=== PATIENT | male | born 1965 | race Caucasian/White ===

== ENCOUNTER 2018-04-14 13:14 | Emergency (ER) | payer MEDICARE ==
[~2018-04-14] VITALS: Ht 175.3 cm; Wt 82.9 kg
[2018-04-14 14:14] LABS: BASOPHILS # (AUTO) 0.01 x10^3/uL (0-0.1); BASOPHILS % (AUTO) 0 % (0-1); EOSINOPHILS # (AUTO) 0.29 x10^3/uL (0-0.4); EOSINOPHILS % (AUTO) 2 % (1-7); LYMPHOCYTES # (AUTO) 3.82 x10^3/uL (1-3.4); LYMPHOCYTES % (AUTO) 28 % (22-44); MD NO; MEAN CORPUSCULAR HEMOGLOBIN 30.8 pg (27.5-34.5); MEAN CORPUSCULAR HGB CONC 33.9 g/dL (33.2-36.2); MEAN CORPUSCULAR VOLUME 90.9 fL (81-97); MEAN PLATELET VOLUME 8.5 fL (7.4-10.4); MONOCYTES # (AUTO) 0.13 x10^3/uL (0.2-0.8); MONOCYTES % (AUTO) 1 % (2-9); NEUTROPHILS % (AUTO) 69 % (42-75); PLATELET COUNT 246 x10^3/uL (130-400); RED BLOOD COUNT 4.72 x10^6/uL (4.38-5.82)
[2018-04-14 14:18] LABS: INTERNATIONAL NORMALIZED RATIO 1.1 (0.93-1.1); PROTHROMBIN TIME 11.3 Seconds (9.6-11.5)
[2018-04-14 14:23] LABS: ALANINE AMINOTRANSFERASE 30 U/L (12-78); ALBUMIN 4.1 g/dL (3.4-5.0); ANION GAP 8 mmol/L (5-15); C-REACTIVE PROTEIN, QUANT 0.05 mg/dL (0.02-0.49); CALCIUM 8.6 mg/dL (8.5-10.1); CHLORIDE 105 mmol/L (98-107)
[2018-04-14 14:25] LABS: ALKALINE PHOSPHATASE 69 U/L (45-117); BILIRUBIN,TOTAL 0.6 mg/dL (0.2-1.0)
[2018-04-14 15:17] VITALS: BP 127/60
[2018-04-14] MEDS ORDERED: ASPI-515 PO (15:23)
[2018-04-14] MEDS ORDERED: METOPROLOL PO (15:23)
[2018-04-14] MEDS ORDERED: [UNRECOGNIZED DRUG - REMARK] (15:23)
[2018-04-14] MEDS ORDERED: LIPITOR PO (15:23)
== END 2018-04-14 16:56 | disposition home or self-care (01) ==
LOC: ED 16:45
DX: I80.02 Phlebitis and thrombophlebitis of superficial vessels of left lower extremity (principal); L98.429 Non-pressure chronic ulcer of back with unspecified severity; L97.219 Non-pressure chronic ulcer of right calf with unspecified severity; L08.9 Local infection of the skin and subcutaneous tissue, unspecified; I10 Essential (primary) hypertension; E78.5 Hyperlipidemia, unspecified; F17.210 Nicotine dependence, cigarettes, uncomplicated
CPT/HCPCS: 36415; 73590; 80053; 85025; 85610; 85651; 86140; 99285; J7512

== ENCOUNTER 2018-05-24 05:24 | Emergency (ER) | payer MEDICARE ==
[~2018-05-24] VITALS: Ht 175.3 cm; Wt 82.6 kg
[~2018-05-24 05:24] MED LIST: ASPI-515 PO; LIPITOR PO; METOPROLOL PO; [UNRECOGNIZED DRUG - REMARK]
[2018-05-24] MEDS ORDERED: DIAZEPAM 5 MG TABLET PO ONE (06:00)
[2018-05-24] MEDS ORDERED: SODIUM CHLORIDE FLUSH 10ML SYR IVF ONE (06:00)
[2018-05-24] MEDS ORDERED: ACETAMINOPHEN 500 MG TABLET PO ONE (06:00)
[2018-05-24] MEDS ORDERED: ACETAMINOPHEN 500 MG TABLET ONE (06:14)
[2018-05-24] MEDS ORDERED: DIAZEPAM 5 MG TABLET ONE (06:14)
[2018-05-24 06:15] LABS: MEAN CORPUSCULAR HEMOGLOBIN 32.3 pg (27.5-34.5); MEAN CORPUSCULAR HGB CONC 34.5 g/dL (33.2-36.2); MEAN CORPUSCULAR VOLUME 93.8 fL (81-97); MEAN PLATELET VOLUME 7.9 fL (7.4-10.4); PLATELET COUNT 246 x10^3/uL (130-400); RED BLOOD COUNT 4.46 x10^6/uL (4.38-5.82); RED CELL DISTRIBUTION WIDTH 13.3 % (9.4-14.8)
[2018-05-24 06:27] LABS: ALANINE AMINOTRANSFERASE 33 U/L (12-78); ALBUMIN 3.4 g/dL (3.4-5.0); ANION GAP 8 mmol/L (5-15); CALCIUM 8.2 mg/dL (8.5-10.1); CHLORIDE 107 mmol/L (98-107); CREATININE 0.71 mg/dL (0.7-1.3)
[2018-05-24 06:29] LABS: ALKALINE PHOSPHATASE 55 U/L (45-117); BILIRUBIN,TOTAL 0.4 mg/dL (0.2-1.0); TOTAL PROTEIN 6.9 g/dL (6.4-8.2)
[2018-05-24 06:35] LABS: MD YES
[2018-05-24 06:37] LABS: BASOS#(MANUAL) 0.23 x10^3/uL (0-0.1); BASOS% (MANUAL) 2 % (0-1); EOS#(MANUAL) 0.11 x10^3/uL (0.0-0.4); EOS% (MANUAL) 1 % (1-7); LYMPH#(MANUAL) 5.65 x10^3/uL (1-3.4); LYMPHS% (MANUAL) 50 % (22-44); MONOS#(MANUAL) 0.79 x10^3/uL (0.3-2.7); MONOS% (MANUAL) 7 % (2-9); SEG#(MANUAL) 4.52 x10^3/uL (1.8-6.8); SEGS% (MANUAL) 40 % (42-75)
[2018-05-24 06:38] LABS: <PLATELET ESTIMATE> ADEQUATE; <PLT MORPHOLOGY> NORMAL PLT MORPH; <RBC MORPHOLOGY> NORMAL
[2018-05-24] MEDS ORDERED: OMNIPAQUE 350 MG/ML, 100ML BOTTLE ONE (06:43)
[2018-05-24 07:34] VITALS: BP 115/80
== END 2018-05-24 08:06 | disposition home or self-care (01) ==
LOC: ED 07:02
DX: S42.302A Unspecified fracture of shaft of humerus, left arm, initial encounter for closed fracture (principal); K63.89 Other specified diseases of intestine; I10 Essential (primary) hypertension; E78.5 Hyperlipidemia, unspecified; F17.200 Nicotine dependence, unspecified, uncomplicated; W17.89XA Other fall from one level to another, initial encounter; Y93.89 Activity, other specified; Y92.89 Other specified places as the place of occurrence of the external cause; Y99.8 Other external cause status
CPT/HCPCS: 36415; 74177; 80053; 83690; 85025; 93005; 99285; Q9967

== ENCOUNTER 2018-08-19 10:35 | Emergency (ER) | payer MEDICARE ==
[~2018-08-19] VITALS: Ht 175.3 cm; Wt 81.5 kg
[2018-08-19] MEDS ORDERED: OMEP-110 PO (11:11)
[2018-08-19] MEDS ORDERED: OXYcodone/APAP 5/325MG TABLET ONE (11:45)
[2018-08-19] MEDS ORDERED: LIDOCAINE-MPF 1%, 2ML ONE ×2 (11:58→11:59)
[2018-08-19] MEDS ORDERED: OXYcodone/APAP 5/325MG TABLET PO ONE (12:00)
[2018-08-19 12:10] LABS: BASOPHILS # (AUTO) 0.16 x10^3/uL (0-0.1); BASOPHILS % (AUTO) 1 % (0-1); EOSINOPHILS # (AUTO) 0.11 x10^3/uL (0-0.4); EOSINOPHILS % (AUTO) 1 % (1-7); LYMPHOCYTES % (AUTO) 30 % (22-44); MD NO; MEAN CORPUSCULAR HEMOGLOBIN 32.2 pg (27.5-34.5); MEAN CORPUSCULAR HGB CONC 34.4 g/dL (33.2-36.2); MEAN CORPUSCULAR VOLUME 93.6 fL (81-97); MEAN PLATELET VOLUME 7.8 fL (7.4-10.4); MONOCYTES # (AUTO) 1.05 x10^3/uL (0.2-0.8); MONOCYTES % (AUTO) 8 % (2-9); NEUTROPHILS # (AUTO) 7.88 x10^3/uL (1.8-6.8); NEUTROPHILS % (AUTO) 60 % (42-75); PLATELET COUNT 260 x10^3/uL (130-400); RED BLOOD COUNT 4.67 x10^6/uL (4.38-5.82); RED CELL DISTRIBUTION WIDTH 12.4 % (9.4-14.8)
[2018-08-19 12:22] LABS: CHLORIDE 99 mmol/L (98-107)
[2018-08-19 12:23] LABS: ALBUMIN 3.8 g/dL (3.4-5.0); ANION GAP 8 mmol/L (5-15); CALCIUM 8.7 mg/dL (8.5-10.1)
[2018-08-19 12:24] LABS: HCT (SEDRATE) 43.7 % (39.2-51.8)
[2018-08-19 15:26] VITALS: BP 132/79
== END 2018-08-19 15:29 | disposition home or self-care (01) ==
LOC: ED 11:25
DX: M13.162 Monoarthritis, not elsewhere classified, left knee (principal); I10 Essential (primary) hypertension; E78.5 Hyperlipidemia, unspecified
CPT/HCPCS: 20610; 36415; 80048; 82040; 84560; 85025; 85651; 87070; 87205; 89051; 99285

== ENCOUNTER → 2018-09-04 | Outpatient (CLI) | payer MEDICARE ==
[~2018-09-04] MED LIST changes: +OMEP-110 PO
== END | disposition home or self-care (01) ==
LOC: WOUND 13:10
PROVIDERS: ATTEND Family Medicine
DX: L97.522 Non-pressure chronic ulcer of other part of left foot with fat layer exposed (principal); I10 Essential (primary) hypertension; M10.062 Idiopathic gout, left knee; M10.9 Gout, unspecified; E78.5 Hyperlipidemia, unspecified; F17.210 Nicotine dependence, cigarettes, uncomplicated
CPT/HCPCS: 97597; 99215

== ENCOUNTER → 2018-09-11 | Outpatient (CLI) | payer MEDICARE | END | disposition home or self-care (01) | LOC: WOUND 12:50 | PROVIDERS: ATTEND Family Medicine | DX: L97.522 Non-pressure chronic ulcer of other part of left foot with fat layer exposed (principal); L97.511 Non-pressure chronic ulcer of other part of right foot limited to breakdown of skin; I10 Essential (primary) hypertension; M10.062 Idiopathic gout, left knee; F17.210 Nicotine dependence, cigarettes, uncomplicated; E78.5 Hyperlipidemia, unspecified | CPT/HCPCS: 99215 ==

== ENCOUNTER → 2018-09-18 | Outpatient (CLI) | payer MEDICARE | END | disposition home or self-care (01) | LOC: WOUND 12:58 | PROVIDERS: ATTEND Family Medicine | DX: L97.522 Non-pressure chronic ulcer of other part of left foot with fat layer exposed (principal); I10 Essential (primary) hypertension; M10.062 Idiopathic gout, left knee; E78.5 Hyperlipidemia, unspecified; F17.210 Nicotine dependence, cigarettes, uncomplicated | CPT/HCPCS: 99215 ==

== ENCOUNTER → 2018-10-02 | Outpatient (CLI) | payer MEDICARE | END | disposition home or self-care (01) | LOC: WOUND 10:00 | PROVIDERS: ATTEND Family Medicine | DX: L97.522 Non-pressure chronic ulcer of other part of left foot with fat layer exposed (principal); L97.821 Non-pressure chronic ulcer of other part of left lower leg limited to breakdown of skin; I25.10 Atherosclerotic heart disease of native coronary artery without angina pectoris; I10 Essential (primary) hypertension; M10.062 Idiopathic gout, left knee; E78.5 Hyperlipidemia, unspecified; I25.2 Old myocardial infarction; L95.8 Other vasculitis limited to the skin; M13.162 Monoarthritis, not elsewhere classified, left knee; M10.9 Gout, unspecified; F17.210 Nicotine dependence, cigarettes, uncomplicated | CPT/HCPCS: 99215 ==

== ENCOUNTER → 2018-10-09 | Outpatient (CLI) | payer MEDICARE | END | disposition home or self-care (01) | LOC: CVU 12:31 | PROVIDERS: ATTEND Family Medicine | DX: I65.22 Occlusion and stenosis of left carotid artery (principal); I10 Essential (primary) hypertension; M79.89 Other specified soft tissue disorders; L97.522 Non-pressure chronic ulcer of other part of left foot with fat layer exposed; L95.8 Other vasculitis limited to the skin; I25.10 Atherosclerotic heart disease of native coronary artery without angina pectoris; I25.2 Old myocardial infarction; Z87.891 Personal history of nicotine dependence | CPT/HCPCS: 93922; 93925; 93970 ==

== ENCOUNTER → 2018-10-16 | Outpatient (CLI) | payer MEDICARE | END | disposition home or self-care (01) | LOC: WOUND 10:26 | PROVIDERS: ATTEND Family Medicine | DX: L97.528 Non-pressure chronic ulcer of other part of left foot with other specified severity (principal); I25.10 Atherosclerotic heart disease of native coronary artery without angina pectoris; I10 Essential (primary) hypertension; M10.062 Idiopathic gout, left knee; E78.5 Hyperlipidemia, unspecified; I25.2 Old myocardial infarction; L95.8 Other vasculitis limited to the skin; M13.162 Monoarthritis, not elsewhere classified, left knee; M10.9 Gout, unspecified; F17.210 Nicotine dependence, cigarettes, uncomplicated | CPT/HCPCS: 99214 ==

== ENCOUNTER → 2018-11-05 | Outpatient (CLI) | payer MEDICARE | END | disposition home or self-care (01) | LOC: CFH 14:26 | PROVIDERS: ATTEND Orthopaedic Surgery Orthopaedic Surgery of the Spine | DX: M76.892 Other specified enthesopathies of left lower limb, excluding foot (principal); M94.8X8 Other specified disorders of cartilage, other site; M25.862 Other specified joint disorders, left knee; M25.462 Effusion, left knee ==

== ENCOUNTER → 2019-01-26 | Outpatient (CLI) | payer MEDICARE ==
[~2019-01-26] MED LIST changes: +ALLO100T30 PO; +CEFD300C37 PO; +DOXY100T PO; +HYDR12.517 PO; +METR500T PO; +PRED10TA PO
== END | disposition home or self-care (01) ==
LOC: CFH 15:43
DX: I77.6 Arteritis, unspecified (principal)
CPT/HCPCS: 71046

== ENCOUNTER 2019-01-29 07:24 | Inpatient (IN) | payer MEDICARE ==
[~2019-01-29] VITALS: Ht 175.3 cm; Wt 80.9 kg
[~2019-01-29 07:24] MED LIST changes: -ALLO100T30 PO; -CEFD300C37 PO; -DOXY100T PO; -HYDR12.517 PO; -METR500T PO; -PRED10TA PO
[2019-01-29 08:09] LABS: MEAN CORPUSCULAR HGB CONC 33.2 g/dL (33.2-36.2); MEAN CORPUSCULAR VOLUME 90.3 fL (81-97); MEAN PLATELET VOLUME 7.7 fL (7.4-10.4); PLATELET COUNT 307 x10^3/uL (130-400); RED BLOOD COUNT 4.87 x10^6/uL (4.38-5.82)
[2019-01-29 08:19] LABS: ALANINE AMINOTRANSFERASE 32 U/L (12-78); ALBUMIN 3.8 g/dL (3.4-5.0); ANION GAP 7 mmol/L (5-15); CALCIUM 8.7 mg/dL (8.5-10.1); CHLORIDE 103 mmol/L (98-107); CREATININE 0.86 mg/dL (0.7-1.3)
[2019-01-29 08:21] LABS: ALKALINE PHOSPHATASE 53 U/L (45-117); BILIRUBIN,TOTAL 0.4 mg/dL (0.2-1.0); TOTAL PROTEIN 7.2 g/dL (6.4-8.2)
--- NOTE | 2019-01-29 09:03 | NUR ---
TO ROOM FROM LOBBY. NAD.
--- NOTE | 2019-01-29 09:06 | NUR ---
PT TO ROOM, C/O OF RECTAL BLEEDING. INSTRUCTED TO BE PLACED IN GOWN
[2019-01-29] MEDS ORDERED: SODIUM CHLORIDE 0.9% 1,000ML IVBOLUS ONE (09:30)
[2019-01-29] MEDS ORDERED: HYDROmorphone 2 MG/ML, 1ML IVPush PRN (09:30)
[2019-01-29] MEDS ORDERED: SODIUM CHLORIDE FLUSH 10ML SYR IVF ONE (09:30)
[2019-01-29] MEDS ORDERED: ONDANSETRON 2MG/ML, 2ML IVPush ONE (09:30)
[2019-01-29] MEDS ORDERED: ONDANSETRON 2MG/ML, 2ML ONE (09:59)
[2019-01-29] MEDS ORDERED: HYDROmorphone 1 MG/ML, 1ML AMP ONE (10:00)
[2019-01-29 10:04] LABS: MD YES
[2019-01-29 10:12] LABS: <RBC MORPHOLOGY> NORMAL; BAND#(MANUAL) 0.18 x10^3/uL; BANDS%(MANUAL) 1 % (0-7); BASOS#(MANUAL) 0.18 x10^3/uL (0-0.1); BASOS% (MANUAL) 1 % (0-1); LYMPHS% (MANUAL) 35 % (22-44); MONOS#(MANUAL) 0.72 x10^3/uL (0.3-2.7); MONOS% (MANUAL) 4 % (2-9); SEG#(MANUAL) 10.62 x10^3/uL (1.8-6.8); SEGS% (MANUAL) 59 % (42-75)
--- NOTE | 2019-01-29 10:12 | NUR ---
MEDICATED PER ORDERS, PT STATES PAIN IS 8/10
[2019-01-29 10:31] LABS: HCT (SEDRATE) 41.4 % (39.2-51.8)
[2019-01-29 10:39] LABS: TROPONIN I < 0.015 ng/mL (0.000-0.045)
[2019-01-29] MEDS ORDERED: OMNIPAQUE 350 MG/ML, 100ML BOTTLE ONE (10:53)
--- NOTE | 2019-01-29 11:15 | NUR ---
NO C/O OF PAIN, URINE OBTAINED, VERBALIZED NO NEEDS AT THIS TIME. CALL LIGHT IN PLACE
[2019-01-29] MEDS ORDERED: METRONIDAZOLE PMX 500MG/100ML 100 ML IV ONE (11:30)
[2019-01-29] MEDS ORDERED: CEFTRIAXONE PMX 1GM/50ML 50 ML IV ONE (11:30)
[2019-01-29] MEDS ORDERED: SODIUM CHLORIDE 0.9%, 500ML IVBOLUS ONE (11:30)
--- NOTE | 2019-01-29 11:44 | NUR ---
SPOKE WITH DR. OZUNA NO BS NEEDED PRIOR TO ADMINISTRATION OF ANTBX
[2019-01-29 11:45] LABS: CULTURE INDICATED? NO; MICROSCOPIC NOT IND
[2019-01-29] MEDS ORDERED: CEFTRIAXONE PMX 1GM/50ML 50 ML ONE (11:47)
[2019-01-29 12:03] LABS: INTERNATIONAL NORMALIZED RATIO 1.05 (0.93-1.1)
[2019-01-29 12:07] LABS: <PLATELET ESTIMATE> ADEQUATE; <PLT MORPHOLOGY> NORMAL PLT MORPH
--- NOTE | 2019-01-29 12:09 | NUR ---
REPORT TO CRUZ ROA, PLAN OF CARE DISCUSSED
[2019-01-29] MEDS ORDERED: METRONIDAZOLE PMX 500MG/100ML 100 ML ONE (12:16)
--- NOTE | 2019-01-29 12:33 | NUR ---
PT TO FLOOR, BELONGINGS WITH PATIENT
[2019-01-29 12:56] VITALS: BP 100/63
[2019-01-29 12:58] VITALS: BP 100/63
[2019-01-29] MEDS ORDERED: MORPHINE SULFATE 4 MG/ML, 1ML IVPush PRN (13:30)
[2019-01-29] MEDS ORDERED: PROMETHAZINE 25 MG/ML, 1ML IM PRN (14:30)
[2019-01-29] MEDS ORDERED: morphine SULFATE 10 MG/ML, 1ML IVPush PRN (14:30)
[2019-01-29] MEDS ORDERED: ACETAMINOPHEN 325 MG TABLET PO PRN (14:30)
[2019-01-29] MEDS ORDERED: hydrALAzine 20 MG/ML, 1ML IVPush PRN (14:30)
[2019-01-29] MEDS ORDERED: ONDANSETRON 2MG/ML, 2ML IVPush PRN (14:30)
[2019-01-29] MEDS ORDERED: ONDANSETRON ODT 4 MG PO PRN (14:30)
[2019-01-29 15:22] LABS: FREE T4 (FREE THYROXINE) 1.45 ng/dL (0.76-1.46); THYROID STIMULATING HORMONE 0.566 mIU/L (0.358-3.740)
[2019-01-29] MEDS: D5%-0.9% NACL 1,000 ML IV SCH ×2 (15:22→22:30)
[2019-01-29 15:29] LABS: HEMOGLOBIN A1C 5.5 % (4.2-6.3)
[2019-01-29] MEDS: CEFTRIAXONE PMX 2GM/50ML 50 ML IV SCH (15:34)
[2019-01-29] MEDS: METRONIDAZOLE PMX 500MG/100ML 100 ML IV SCH ×2 (16:12→23:00)
[2019-01-29] MEDS: NICOTINE 7 MG/24 HR PATCH.TD24 TD SCH (16:20)
[2019-01-29] MEDS: methylPREDNISolone SOD SUCC 40 MG/ML IV SCH (16:27)
[2019-01-29] MEDS ORDERED: HYDR12.517 PO (16:42)
[2019-01-29] MEDS ORDERED: ALLO100T30 PO (16:42)
[2019-01-29] MEDS ORDERED: PRED10TA PO (16:42)
[2019-01-29] MEDS ORDERED: DOXY100T PO (16:42)
[2019-01-29 20:40] VITALS: BP 106/68
[2019-01-30 01:43] VITALS: BP 111/72
[2019-01-30] MEDS: methylPREDNISolone SOD SUCC 40 MG/ML IV SCH ×2 (03:00→15:28)
[2019-01-30 05:21] LABS: BASOPHILS # (AUTO) 0.04 x10^3/uL (0-0.1); BASOPHILS % (AUTO) 0 % (0-1); EOSINOPHILS # (AUTO) 0.21 x10^3/uL (0-0.4); EOSINOPHILS % (AUTO) 2 % (1-7); LYMPHOCYTES # (AUTO) 3.32 x10^3/uL (1-3.4); LYMPHOCYTES % (AUTO) 26 % (22-44); MD NO; MEAN CORPUSCULAR HGB CONC 33.9 g/dL (33.2-36.2); MEAN CORPUSCULAR VOLUME 91.3 fL (81-97); MONOCYTES # (AUTO) 1.03 x10^3/uL (0.2-0.8); MONOCYTES % (AUTO) 8 % (2-9); NEUTROPHILS # (AUTO) 8.08 x10^3/uL (1.8-6.8); NEUTROPHILS % (AUTO) 64 % (42-75); PLATELET COUNT 268 x10^3/uL (130-400); RED BLOOD COUNT 4.34 x10^6/uL (4.38-5.82); RED CELL DISTRIBUTION WIDTH 13.5 % (9.4-14.8)
[2019-01-30 05:31] LABS: ALBUMIN 3.2 g/dL (3.4-5.0); CHLORIDE 111 mmol/L (98-107)
[2019-01-30 05:36] LABS: ALANINE AMINOTRANSFERASE 24 U/L (12-78); ALKALINE PHOSPHATASE 46 U/L (45-117); ANION GAP 7 mmol/L (5-15); BILIRUBIN,TOTAL 0.4 mg/dL (0.2-1.0); CHOL/HDL RATIO 2.8; CHOLESTEROL, TOTAL 130 mg/dL (140-239); HDL CHOL % 36 % (26-37); HDL CHOLESTEROL (DIRECT) 47 mg/dL (40-60); LDL CHOLESTEROL,CALCULATED 69 mg/dL (54-169); LDL/HDL RATIO 1.5 (0.5-3.0); TOTAL PROTEIN 5.8 g/dL (6.4-8.2); TRIGLYCERIDES 71 mg/dL (50-200); VLDL CHOLESTEROL 14 mg/dL (0-25)
[2019-01-30 07:56] VITALS: BP 111/64
[2019-01-30] MEDS: ASPIRIN 81 MG TABLET EC PO SCH (08:45)
[2019-01-30] MEDS: METRONIDAZOLE PMX 500MG/100ML 100 ML IV SCH ×3 (08:45→22:50)
[2019-01-30] MEDS: D5%-0.9% NACL 1,000 ML IV SCH ×3 (08:45→22:50)
[2019-01-30] MEDS: METOPROLOL SUCCINATE 25 MG TAB.ER.24H PO SCH (08:45)
[2019-01-30] MEDS: OXYcodone/APAP 5/325MG TABLET PO PRN ×2 (13:45→21:05)
[2019-01-30 14:36] VITALS: BP 138/81
[2019-01-30] MEDS: NICOTINE 7 MG/24 HR PATCH.TD24 TD SCH (15:28)
[2019-01-30] MEDS: CEFTRIAXONE PMX 2GM/50ML 50 ML IV SCH (17:24)
[2019-01-30 19:57] VITALS: BP 110/63
[2019-01-30 20:16] LABS: MICROSCOPIC NOT IND
[2019-01-31 01:02] VITALS: BP 95/50
[2019-01-31] MEDS: methylPREDNISolone SOD SUCC 40 MG/ML IV SCH (02:50)
[2019-01-31] MEDS: OXYcodone/APAP 5/325MG TABLET PO PRN (04:46)
[2019-01-31 04:55] LABS: BASOPHILS # (AUTO) 0.04 x10^3/uL (0-0.1); BASOPHILS % (AUTO) 0 % (0-1); EOSINOPHILS # (AUTO) 0.01 x10^3/uL (0-0.4); EOSINOPHILS % (AUTO) 0 % (1-7); LYMPHOCYTES % (AUTO) 26 % (22-44); MD NO; MEAN CORPUSCULAR HEMOGLOBIN 30.5 pg (27.5-34.5); MEAN CORPUSCULAR HGB CONC 33.5 g/dL (33.2-36.2); MEAN CORPUSCULAR VOLUME 91.2 fL (81-97); MEAN PLATELET VOLUME 8.2 fL (7.4-10.4); MONOCYTES % (AUTO) 7 % (2-9); NEUTROPHILS % (AUTO) 67 % (42-75); PLATELET COUNT 265 x10^3/uL (130-400); RED CELL DISTRIBUTION WIDTH 13.6 % (9.4-14.8)
[2019-01-31 05:04] LABS: ALBUMIN 3.2 g/dL (3.4-5.0); ANION GAP 5 mmol/L (5-15); CALCIUM 8.2 mg/dL (8.5-10.1); CHLORIDE 112 mmol/L (98-107)
[2019-01-31 05:05] LABS: CREATININE 0.65 mg/dL (0.7-1.3)
[2019-01-31] MEDS: METRONIDAZOLE PMX 500MG/100ML 100 ML IV SCH (06:40)
[2019-01-31] MEDS: D5%-0.9% NACL 1,000 ML IV SCH (06:41)
[2019-01-31 07:50] VITALS: BP 129/80
[2019-01-31] MEDS: METOPROLOL SUCCINATE 25 MG TAB.ER.24H PO SCH (08:51)
[2019-01-31] MEDS: ASPIRIN 81 MG TABLET EC PO SCH (08:52)
[2019-01-31] MEDS ORDERED: CEFD300C37 PO (13:38)
[2019-01-31] MEDS ORDERED: METR500T PO (13:38)
[2019-01-31 14:31] VITALS: BP 122/77
[2019-02-02] MEDS ORDERED: ATORVASTATIN 20 MG TABLET PO SCH (21:00)
== END 2019-01-31 15:20 | disposition home or self-care (01) | DRG 378 ==
LOC: ED 10:18 → EDIP 11:27 → 3NW 11:57
PROVIDERS: ADMIT Internal Medicine; ATTEND Internal Medicine
DX: K92.2 Gastrointestinal hemorrhage, unspecified (principal); K55.9 Vascular disorder of intestine, unspecified; K86.1 Other chronic pancreatitis; I25.10 Atherosclerotic heart disease of native coronary artery without angina pectoris; I10 Essential (primary) hypertension; I77.6 Arteritis, unspecified; F17.200 Nicotine dependence, unspecified, uncomplicated; E78.5 Hyperlipidemia, unspecified; Z86.72 Personal history of thrombophlebitis; Z95.5 Presence of coronary angioplasty implant and graft; Z87.11 Personal history of peptic ulcer disease; Z90.89 Acquired absence of other organs
CPT/HCPCS: 36415; 74174; 80048; 80053; 80061; 81003; 82040; 83036; 83605; 83690; 83735; 84100; 84439; 84443; 84484; 85025; 85610; 85651; 87040; 93005; 96361; 96365; 96368; 96375; G0378; J0696; J1170; J2405; J7042; Q9967; J2920; J7030; J7040

== ENCOUNTER 2020-04-22 01:06 | Emergency (ER) | payer MEDICARE, MEDICAID ==
[~2020-04-22] VITALS: Ht 177.8 cm; Wt 82.0 kg
[~2020-04-22 01:06] MED LIST changes: +ALLO100T30 PO; +AZAT50TA9 PO; +CEFD300C37 PO; +DOXY100T PO; +GABA600T7 PO; +HYDR12.517 PO; +METR500T PO; +NICO-486 TD; +OMEP40CA42 PO; +PRED10TA PO; +VANC1VIA3 PO
--- NOTE | 2020-04-22 02:08 | NUR ---
PT TO ED PER EMS FOR EVALUATION OF CHEST PAIN AND SHORTNESS OF BREATH. PT REPORTS CHEST PAIN AND SHORTNESS OF BREATH HAVE BEEN GOING ON FOR THE PAST SEVERAL DAYS. DENIES FEVER OR COUGH. DENIES ANY BILATERAL LOWER EXTREMITY EDEMA. PT PLACED ON MANAGER AREA AND CONTINUOUS PULSE OX.
[2020-04-22] MEDS ORDERED: ASPI-496 PO (02:17)
[2020-04-22] MEDS ORDERED: ATOR-2 PO (02:18)
[2020-04-22] MEDS ORDERED: CYCL50CA3 PO (02:18)
[2020-04-22] MEDS ORDERED: ISOS120T4 PO (02:19)
[2020-04-22] MEDS ORDERED: LISI5TAB7 PO (02:20)
[2020-04-22] MEDS ORDERED: METO25TA35 PO (02:20)
[2020-04-22] MEDS ORDERED: OMEP-110 PO (02:21)
[2020-04-22] MEDS ORDERED: NITR0.4T28 SL (02:21)
[2020-04-22] MEDS ORDERED: PRED10TA PO (02:22)
[2020-04-22] MEDS ORDERED: LISI2.5T PO (02:22)
[2020-04-22] MEDS ORDERED: MULT-717 PO (02:23)
[2020-04-22] MEDS ORDERED: probiotic (02:23)
[2020-04-22] MEDS ORDERED: LISI-170 PO (02:23)
[2020-04-22 02:25] LABS: MEAN CORPUSCULAR HEMOGLOBIN 30.8 pg (27.5-34.5); MEAN CORPUSCULAR VOLUME 93.1 fL (81-97); MEAN PLATELET VOLUME 7.4 fL (7.4-10.4); PLATELET COUNT 246 x10^3/uL (130-400); RED BLOOD COUNT 4.21 x10^6/uL (4.38-5.82); RED CELL DISTRIBUTION WIDTH 21.2 % (9.4-14.8)
[2020-04-22 02:27] LABS: ALANINE AMINOTRANSFERASE 31 U/L (12-78); ALBUMIN 3.9 g/dL (3.4-5.0); ANION GAP 9 mmol/L (5-15); CALCIUM 8.2 mg/dL (8.5-10.1); CHLORIDE 108 mmol/L (98-107); CREATININE 0.63 mg/dL (0.7-1.3)
[2020-04-22 02:31] LABS: ALKALINE PHOSPHATASE 63 U/L (45-117); BILIRUBIN,TOTAL 0.4 mg/dL (0.2-1.0); TOTAL PROTEIN 7.6 g/dL (6.4-8.2); TROPONIN I < 0.015 ng/mL (0.000-0.045)
--- NOTE | 2020-04-22 02:36 | NUR ---
BREAK RN: PATIENT RESTING ON GURNEY, RESPIRATIONS EVEN AND UNLABORED. MONIKA MARINO
[2020-04-22 02:54] LABS: ANISOCYTOSIS 1+; BASOPHILS # (AUTO) 0.13 x10^3/uL (0-0.1); BASOPHILS % (AUTO) 2 % (0-1); EOSINOPHILS # (AUTO) 0.32 x10^3/uL (0-0.4); EOSINOPHILS % (AUTO) 4 % (1-7); LYMPHOCYTES # (AUTO) 3.27 x10^3/uL (1-3.4); LYMPHOCYTES % (AUTO) 37 % (22-44); MD MORPH REVIEW ONLY; MONOCYTES # (AUTO) 0.69 x10^3/uL (0.2-0.8); MONOCYTES % (AUTO) 8 % (2-9); NEUTROPHILS # (AUTO) 4.45 x10^3/uL (1.8-6.8); NEUTROPHILS % (AUTO) 50 % (42-75)
[2020-04-22 02:55] LABS: <PLATELET ESTIMATE> ADEQUATE; ACANTHOCYTES 1+; ECHINOCYTES 1+; OVALOCYTES 1+; SCHISTOCYTES 1+; TARGET CELLS 1+
[2020-04-22 02:56] LABS: <PLT MORPHOLOGY> NORMAL PLT MORPH
[2020-04-22 03:30] VITALS: BP 119/78
--- NOTE | 2020-04-22 04:00 | NUR ---
PT LEFT ER WITHOUT DC PAPERWORK DESPITE BEING TOLD TO WAIT IN ROOM FOR RN. LAST INTERACTION PT WAS [facility] no SOB, P/W/D, VSS, MAEx4. NO BELONGINGS LEFT IN ROOM.
== END 2020-04-22 04:01 | disposition home or self-care (01) ==
LOC: ED 02:28
DX: R07.89 Other chest pain (principal); R05 Cough; I10 Essential (primary) hypertension; I25.2 Old myocardial infarction; E78.5 Hyperlipidemia, unspecified; F17.200 Nicotine dependence, unspecified, uncomplicated; M19.90 Unspecified osteoarthritis, unspecified site
CPT/HCPCS: 36415; 71045; 80053; 83880; 84484; 85025; 93005; 99285

== ENCOUNTER 2020-12-27 16:37 | Emergency (ER) | payer MEDICARE, MEDICAID ==
[~2020-12-27] VITALS: Ht 172.7 cm; Wt 67.9 kg
[~2020-12-27 16:37] MED LIST changes: +ALBU90AE2 INH; +ASPI-496 PO; -ASPI-515 PO; +ASPI-963 PO; +ATOR-2 PO; +BUDE10.22 INH; +CYCL50CA3 PO; +DULO30CA44 PO; +ISOS120T4 PO; +L.AC1CAP6 PO; +LISI-170 PO; +LISI2.5T PO; +LISI5TAB7 PO; +METO25TA35 PO; +MONT10TA17 PO; +MULT-717 PO; +MYCO500T PO; +NITR0.4T28 SL; +ONDA4TAB13 PO; +probiotic
--- NOTE | 2020-12-27 17:12 | NUR ---
PATIENT WALKED BACK FROM TRIAGE WITH CHIEF C/O LEFT LEG PAIN. PER PATIENT HE WAS DIAGNOSED WITH A DVT IN LEFT LEG ABOUT 2 WEEKS AGO BY [employer]. PATIENT ALSO REPORTS ABD PAIN OFF AND ON X1 MONTH. PATIENT DENIES SOB. PATIENT IS TACHYCARDIC ON THE MONITOR, OTHER VITALS STABLE. SIDE RAILS UP X2, CALL LIGHT WITHIN REACH.
--- NOTE | 2020-12-27 17:39 | NUR ---
ERMD AT BEDSIDE FOR EVALUATION.
[2020-12-27] MEDS ORDERED: ONDANSETRON 2MG/ML, 2ML IVPush ONE (18:00)
--- NOTE | 2020-12-27 18:03 | NUR ---
STUDIO OPERATIONS ENGINEER IN CHARGE AT BEDSIDE TO START IV AND GET BLOOD.
[2020-12-27] MEDS ORDERED: ONDANSETRON 2MG/ML, 2ML ONE (18:05)
[2020-12-27] MEDS ORDERED: MORPHINE SULFATE 4 MG/ML, 1ML ONE ×2 (18:05→19:29)
[2020-12-27] MEDS: MORPHINE SULFATE 4 MG/ML, 1ML IVPush PRN ×2 (18:17→19:38)
[2020-12-27 18:26] LABS: MEAN CORPUSCULAR HEMOGLOBIN 35.4 pg (27.5-34.5); MEAN CORPUSCULAR HGB CONC 34.6 g/dL (33.2-36.2); MEAN PLATELET VOLUME 9.2 fL (7.4-10.4); PLATELET COUNT 171 x10^3/uL (130-400); RED BLOOD COUNT 4.56 x10^6/uL (4.38-5.82); RED CELL DISTRIBUTION WIDTH 14.4 % (9.4-14.8)
[2020-12-27 18:39] LABS: ALBUMIN 3.3 g/dL (3.4-5.0); ANION GAP 13 mmol/L (5-15); CALCIUM 8.2 mg/dL (8.5-10.1); CHLORIDE 98 mmol/L (98-107)
[2020-12-27 18:45] LABS: ALANINE AMINOTRANSFERASE 59 U/L (12-78); ALKALINE PHOSPHATASE 154 U/L (45-117); CREATININE 0.57 mg/dL (0.7-1.3); TOTAL PROTEIN 7.6 g/dL (6.4-8.2); TROPONIN I < 0.015 ng/mL (0.000-0.045)
[2020-12-27 18:47] LABS: MD YES
[2020-12-27 18:51] LABS: BAND#(MANUAL) 0.13 x10^3/uL; BANDS%(MANUAL) 1 % (0-7); BASOS#(MANUAL) 0.13 x10^3/uL (0-0.1); BASOS% (MANUAL) 1 % (0-1); EOS#(MANUAL) 0.13 x10^3/uL (0.0-0.4); EOS% (MANUAL) 1 % (1-7); LYMPH#(MANUAL) 2.55 x10^3/uL (1-3.4); LYMPHS% (MANUAL) 19 % (22-44); MONOS#(MANUAL) 1.61 x10^3/uL (0.3-2.7); MONOS% (MANUAL) 12 % (2-9); SEG#(MANUAL) 8.84 x10^3/uL (1.8-6.8); SEGS% (MANUAL) 66 % (42-75)
[2020-12-27 18:52] LABS: <RBC MORPHOLOGY> NORMAL
[2020-12-27 18:53] LABS: <PLATELET ESTIMATE> ADEQUATE; LARGE PLATELETS 1+
--- NOTE | 2020-12-27 18:58 | NUR ---
REPORT GIVEN TO CRISPIN VILLALOBOS FOR TRANSFER OF PATIENT CARE.
--- NOTE | 2020-12-27 19:00 | NUR ---
Report from Roni ROA With assessment vss on monitor To CT scan Denies cp/sob. Reports back pain at 06/12
[2020-12-27] MEDS ORDERED: OMNIPAQUE 350 MG/ML, 100ML BOTTLE ONE (19:26)
[2020-12-27] MEDS ORDERED: PRED10TA14 PO (19:47)
[2020-12-27] MEDS ORDERED: METH2.5T PO (19:47)
--- NOTE | 2020-12-27 19:57 | NUR ---
PAIN IMPROVED TO 2/10 MED [facility] COMPLETED- OF NOTE CEELCEPT DISCONTINUED AND PATIENT STARTED ON METHOTREXATE AND PREDNISONE. REPORT TO JOYCE ROA
[2020-12-27 20:07] VITALS: BP 123/88
--- NOTE | 2020-12-27 20:11 | NUR ---
ERP AT FOR RECHECK.
--- NOTE | 2020-12-27 20:50 | NUR ---
D/C INSTRUCTIONS, MEDS & F/U APPT RV'WD WITH PT, HE VERBALIZES UNDERSTANDING RX GIVEN X1. EMPHASIZED IMPORTANCE OF F/U WITH PCP D/T NEW RX OF XARELTO. INSTRUCTED PT TO RETURN TO ED FOR WORSENING SYMPTOMS OR ANY OTHER CONCERNING SYMPTOMS. PT AMBULATED OUT OF ED WITH CANE WITHOUT DIFFICULTY.
== END 2020-12-27 21:01 | disposition home or self-care (01) ==
LOC: ED 20:46
DX: I82.432 Acute embolism and thrombosis of left popliteal vein (principal); I82.442 Acute embolism and thrombosis of left tibial vein; R07.89 Other chest pain; R00.0 Tachycardia, unspecified; I10 Essential (primary) hypertension; E78.5 Hyperlipidemia, unspecified; I25.2 Old myocardial infarction; Z98.61 Coronary angioplasty status; F17.210 Nicotine dependence, cigarettes, uncomplicated
CPT/HCPCS: 36415; 71045; 71275; 80053; 83690; 83880; 84484; 85025; 93005; 93971; 96374; 96375; 96376; 99285; 99406; J2270; J2405; Q9967

== ENCOUNTER 2021-01-29 13:44 | Inpatient (IN) | payer MEDICARE, MEDICAID ==
[~2021-01-29] VITALS: Ht 175.3 cm; Wt 69.1 kg
[~2021-01-29 13:44] MED LIST changes: +METH2.5T PO; +PRED10TA14 PO
--- NOTE | 2021-01-29 14:03 | NUR ---
PT CAME IN CO REDNESS SWELLING AND PAIN TO LOWER LEGS. THE LEFT LEG IS SIGNIFICANTLY MORE SWELLING THAN THE RIGHT. LEFT ANKLE HAS REDNESS AND IS TENDER WELL. PT HAS WHAT APPEARS TO BE PETECHIAE ALL OVER HIS BODY. PT REPORTS TAKING XARELTO FOR DVT HX. PT ALSO DX WITH VASCULITIS IN DEC. PT RESTING IN [facility]. BEDSIDE. CONNECTED TO ALL MONITORING EQUIPNMENT
[2021-01-29 14:32] LABS: BASOPHILS % (AUTO) 1 % (0-1); EOSINOPHILS % (AUTO) 1 % (1-7); LYMPHOCYTES % (AUTO) 14 % (22-44); MEAN CORPUSCULAR HEMOGLOBIN 34.5 pg (27.5-34.5); MEAN CORPUSCULAR HGB CONC 33.7 g/dL (33.2-36.2); MEAN PLATELET VOLUME 8.3 fL (7.4-10.4); MONOCYTES % (AUTO) 10 % (2-9); NEUTROPHILS % (AUTO) 74 % (42-75); PLATELET COUNT 369 x10^3/uL (130-400); RED BLOOD COUNT 3.73 x10^6/uL (4.38-5.82); RED CELL DISTRIBUTION WIDTH 13.9 % (9.4-14.8)
[2021-01-29 14:47] LABS: INTERNATIONAL NORMALIZED RATIO 1.56 (0.93-1.1); PROTHROMBIN TIME 16.5 Seconds (9.6-11.5)
--- NOTE | 2021-01-29 14:48 | NUR ---
PT RESTING IN [facility]. WARM BLANKETS PROVIDED
[2021-01-29 14:58] LABS: ALANINE AMINOTRANSFERASE 36 U/L (12-78); ALBUMIN 2.8 g/dL (3.4-5.0); ANION GAP 6 mmol/L (5-15); CALCIUM 8.3 mg/dL (8.5-10.1); CHLORIDE 105 mmol/L (98-107)
[2021-01-29 15:00] LABS: ALKALINE PHOSPHATASE 75 U/L (45-117); BILIRUBIN,TOTAL 1.1 mg/dL (0.2-1.0); TOTAL PROTEIN 6.3 g/dL (6.4-8.2)
[2021-01-29 15:07] LABS: MD SCAN
[2021-01-29 15:33] LABS: HCT (SEDRATE) 40.3 % (39.2-51.8)
[2021-01-29] MEDS ORDERED: CEFTRIAXONE PMX 1GM/50ML 50 ML ONE (15:54)
[2021-01-29] MEDS ORDERED: CEFTRIAXONE PMX 1GM/50ML 50 ML IVPB ONE (16:00)
--- NOTE | 2021-01-29 16:21 | NUR ---
PT RESTING IN [facility]. AWAITING LAB TO DRAW CULTURES
--- NOTE | 2021-01-29 16:35 | NUR ---
ONE SET OF BLOOD CULTURES DRAWN. PT REFUSING SECOND SET TO BE DRAWN BY DIRECTOR OF EXHIBIT DEVELOPMENT, REQUESTING A DIFFERENT DIRECTOR OF EXHIBIT DEVELOPMENT TO DRAW HIM. "THAT LISA HURT ME. BRING SOMEONE ELSE"
--- NOTE | 2021-01-29 17:03 | NUR ---
ABX ADM AFTER BLOOD CULTURES X 2 DRAWN
[2021-01-29] MEDS ORDERED: SODIUM CHLORIDE FLUSH 10ML SYR IVF PRN (17:30)
[2021-01-29] MEDS ORDERED: morphine SULFATE 10 MG/ML, 1ML IVPush PRN (18:00)
[2021-01-29] MEDS: AMPICILLIN/SULBACTAM 3 GM in SODIUM CHLORIDE 0.9% 100 ML IV SCH ×2 (18:00→20:19)
[2021-01-29] MEDS ORDERED: ONDANSETRON ODT 4 MG PO PRN (18:00)
[2021-01-29] MEDS ORDERED: ENALAPRILAT 1.25 MG/ML, 2ML IVPush PRN (18:00)
[2021-01-29] MEDS ORDERED: ONDANSETRON 2MG/ML, 2ML IVPush PRN (18:00)
[2021-01-29] MEDS ORDERED: ACETAMINOPHEN 325 MG TABLET PO PRN (18:00)
[2021-01-29] MEDS ORDERED: TRAZODONE 50MG TABLET PO PRN (18:00)
[2021-01-29 18:28] VITALS: BP 108/73
[2021-01-29] MEDS: HYDROcodone/APAP 5/325 TABLET PO PRN (18:40)
[2021-01-29] MEDS: RIVAROXABAN 15 MG TABLET PO SCH (18:40)
[2021-01-29] MEDS: ATORVASTATIN 20 MG TABLET PO SCH (20:21)
[2021-01-29] MEDS: DOXYCYCLINE 100MG TABLET PO SCH (20:21)
[2021-01-30 00:41] VITALS: BP 103/71
[2021-01-30] MEDS: AMPICILLIN/SULBACTAM 3 GM in SODIUM CHLORIDE 0.9% 100 ML IV SCH ×4 (02:12→21:09)
[2021-01-30 05:10] LABS: BASOPHILS % (AUTO) 1 % (0-1); EOSINOPHILS % (AUTO) 5 % (1-7); LYMPHOCYTES % (AUTO) 18 % (22-44); MEAN CORPUSCULAR HEMOGLOBIN 34.8 pg (27.5-34.5); MEAN CORPUSCULAR HGB CONC 33.7 g/dL (33.2-36.2); MEAN PLATELET VOLUME 8.3 fL (7.4-10.4); MONOCYTES % (AUTO) 11 % (2-9); NEUTROPHILS % (AUTO) 65 % (42-75); PLATELET COUNT 353 x10^3/uL (130-400); RED BLOOD COUNT 3.42 x10^6/uL (4.38-5.82); RED CELL DISTRIBUTION WIDTH 13.7 % (9.4-14.8)
[2021-01-30 05:12] LABS: MD NO
[2021-01-30 05:23] LABS: ANION GAP 5 mmol/L (5-15); CALCIUM 8.3 mg/dL (8.5-10.1); CHLORIDE 107 mmol/L (98-107)
[2021-01-30 05:25] LABS: CREATININE 0.39 mg/dL (0.7-1.3)
[2021-01-30] MEDS: METOPROLOL TARTRATE 25 MG TAB PO SCH ×2 (06:00→06:31)
[2021-01-30] MEDS: OMEPRAZOLE 20 MG CAPSULE.DR PO SCH (06:31)
[2021-01-30 06:34] VITALS: BP 103/76
[2021-01-30] MEDS: ASPIRIN 81 MG TABLET EC PO SCH (08:32)
[2021-01-30] MEDS: DOXYCYCLINE 100MG TABLET PO SCH ×2 (08:32→21:09)
[2021-01-30] MEDS: RIVAROXABAN 15 MG TABLET PO SCH ×2 (08:32→17:21)
[2021-01-30] MEDS: DULOXETINE 30 MG CAPSULE.DR PO SCH (08:32)
[2021-01-30] MEDS: HYDROcodone/APAP 5/325 TABLET PO PRN ×2 (09:03→21:18)
[2021-01-30 15:40] VITALS: BP 106/72
[2021-01-30 19:49] VITALS: BP 88/56
[2021-01-30 19:52] VITALS: BP 104/65
[2021-01-30] MEDS: ATORVASTATIN 20 MG TABLET PO SCH (21:09)
[2021-01-31 01:33] VITALS: BP 109/72
[2021-01-31] MEDS: AMPICILLIN/SULBACTAM 3 GM in SODIUM CHLORIDE 0.9% 100 ML IV SCH ×4 (03:28→21:17)
[2021-01-31 05:22] VITALS: BP 110/72
[2021-01-31] MEDS: METOPROLOL TARTRATE 25 MG TAB PO SCH (05:24)
[2021-01-31] MEDS: OMEPRAZOLE 20 MG CAPSULE.DR PO SCH (05:24)
[2021-01-31 07:30] VITALS: BP 127/79
[2021-01-31] MEDS: HYDROcodone/APAP 5/325 TABLET PO PRN ×2 (08:21→15:49)
[2021-01-31] MEDS: DULOXETINE 30 MG CAPSULE.DR PO SCH (08:21)
[2021-01-31] MEDS: ASPIRIN 81 MG TABLET EC PO SCH (08:22)
[2021-01-31] MEDS: RIVAROXABAN 15 MG TABLET PO SCH ×2 (08:22→15:43)
[2021-01-31] MEDS: DOXYCYCLINE 100MG TABLET PO SCH ×2 (08:22→21:18)
[2021-01-31 14:56] VITALS: BP 110/73
[2021-01-31 19:33] VITALS: BP 110/72
[2021-01-31] MEDS: ATORVASTATIN 20 MG TABLET PO SCH (21:18)
[2021-01-31 23:56] VITALS: BP 115/73
[2021-02-01] MEDS: AMPICILLIN/SULBACTAM 3 GM in SODIUM CHLORIDE 0.9% 100 ML IV SCH ×2 (03:02→09:10)
[2021-02-01 05:36] LABS: BASOPHILS % (AUTO) 1 % (0-1); EOSINOPHILS % (AUTO) 3 % (1-7); LYMPHOCYTES % (AUTO) 17 % (22-44); MEAN CORPUSCULAR HEMOGLOBIN 34.6 pg (27.5-34.5); MEAN CORPUSCULAR HGB CONC 33.3 g/dL (33.2-36.2); MEAN PLATELET VOLUME 8.7 fL (7.4-10.4); MONOCYTES % (AUTO) 8 % (2-9); NEUTROPHILS % (AUTO) 71 % (42-75); PLATELET COUNT 329 x10^3/uL (130-400); RED BLOOD COUNT 3.48 x10^6/uL (4.38-5.82); RED CELL DISTRIBUTION WIDTH 13.7 % (9.4-14.8)
[2021-02-01 05:42] LABS: MD NO
[2021-02-01 05:46] VITALS: BP 128/81
[2021-02-01] MEDS: OMEPRAZOLE 20 MG CAPSULE.DR PO SCH (05:47)
[2021-02-01 05:48] LABS: ANION GAP 7 mmol/L (5-15); CALCIUM 8.2 mg/dL (8.5-10.1); CHLORIDE 110 mmol/L (98-107)
[2021-02-01] MEDS: METOPROLOL TARTRATE 25 MG TAB PO SCH (05:48)
[2021-02-01 05:50] LABS: CREATININE 0.51 mg/dL (0.7-1.3)
[2021-02-01 06:35] VITALS: BP 122/74
[2021-02-01] MEDS: ASPIRIN 81 MG TABLET EC PO SCH (09:08)
[2021-02-01] MEDS: RIVAROXABAN 15 MG TABLET PO SCH (09:08)
[2021-02-01] MEDS: DOXYCYCLINE 100MG TABLET PO SCH (09:08)
[2021-02-01] MEDS: DULOXETINE 30 MG CAPSULE.DR PO SCH (09:08)
[2021-02-01] MEDS ORDERED: DOXY100T PO (10:30)
[2021-02-01] MEDS ORDERED: RIVA20TA PO (11:46)
[2021-02-01] MEDS ORDERED: RIVA15TA PO (11:46)
[2021-02-01 12:36] VITALS: BP 114/75
== END 2021-02-01 14:00 | disposition home or self-care (01) | DRG 300 ==
LOC: ED 17:02 → SUATTDRO 17:05 → ED 17:12 → EDIP 17:18 → 3N 18:19 → DCLOUNGE 02-01 13:43
PROVIDERS: ADMIT Hospitalist; ATTEND Internal Medicine
DX: I82.432 Acute embolism and thrombosis of left popliteal vein (principal); L03.116 Cellulitis of left lower limb; M30.0 Polyarteritis nodosa; I25.10 Atherosclerotic heart disease of native coronary artery without angina pectoris; F10.10 Alcohol abuse, uncomplicated; I50.9 Heart failure, unspecified; I11.0 Hypertensive heart disease with heart failure; F17.210 Nicotine dependence, cigarettes, uncomplicated; D72.829 Elevated white blood cell count, unspecified; I25.2 Old myocardial infarction; Z79.01 Long term (current) use of anticoagulants; Z86.718 Personal history of other venous thrombosis and embolism; Z86.72 Personal history of thrombophlebitis; Z95.818 Presence of other cardiac implants and grafts; Z98.52 Vasectomy status; Z79.899 Other long term (current) drug therapy; Z79.891 Long term (current) use of opiate analgesic; Z79.82 Long term (current) use of aspirin; Z82.49 Family history of ischemic heart disease and other diseases of the circulatory system
CPT/HCPCS: 36415; 80048; 80053; 83605; 84145; 85025; 85610; 85651; 85730; 87040; 96365; G0378; J0295; J0696; J2270; J7512

== ENCOUNTER 2021-02-15 13:06 | Emergency (ER) | payer MEDICARE, MEDICAID ==
[~2021-02-15] VITALS: Ht 172.7 cm; Wt 72.1 kg
[~2021-02-15 13:06] MED LIST changes: +RIVA15TA PO; +RIVA20TA PO
--- NOTE | 2021-02-15 13:33 | NUR ---
PT TO ROOM FROM TRIAGE, PT CHANGED INTO GOWN, MONITORS IN PLACE. CALL LIGHT WITHIN REACH. NADN/VSS. CALL LIGHT WITHIN REACH
[2021-02-15 14:10] LABS: BASOPHILS % (AUTO) 1 % (0-1); EOSINOPHILS % (AUTO) 0 % (1-7); LYMPHOCYTES % (AUTO) 12 % (22-44); MEAN CORPUSCULAR HEMOGLOBIN 33.2 pg (27.5-34.5); MEAN CORPUSCULAR HGB CONC 33.5 g/dL (33.2-36.2); MEAN PLATELET VOLUME 7.5 fL (7.4-10.4); MONOCYTES % (AUTO) 7 % (2-9); NEUTROPHILS % (AUTO) 80 % (42-75); PLATELET COUNT 344 x10^3/uL (130-400); RED BLOOD COUNT 3.37 x10^6/uL (4.38-5.82); RED CELL DISTRIBUTION WIDTH 13.6 % (9.4-14.8)
[2021-02-15 14:11] LABS: HCT (SEDRATE) 33.4 % (39.2-51.8)
[2021-02-15 14:16] LABS: MD NO
[2021-02-15 14:19] LABS: ALBUMIN 3.3 g/dL (3.4-5.0); ANION GAP 7 mmol/L (5-15); CALCIUM 8.7 mg/dL (8.5-10.1); CHLORIDE 100 mmol/L (98-107)
[2021-02-15 14:30] LABS: INTERNATIONAL NORMALIZED RATIO 1.5 (0.93-1.1); PROTHROMBIN TIME 15.9 Seconds (9.6-11.5)
[2021-02-15 15:01] LABS: ALBUMIN 3.3 g/dL (3.4-5.0); BILIRUBIN, DIRECT 0.3 mg/dL (0.1-0.2)
[2021-02-15 15:03] LABS: BILIRUBIN,INDIRECT 0.3 mg/dL (0.0-2.0); BILIRUBIN,TOTAL 0.6 mg/dL (0.2-1.0); TOTAL PROTEIN 6.6 g/dL (6.4-8.2)
--- NOTE | 2021-02-15 15:28 | NUR ---
PT CALMLY SITTING ON GURNEY, NADN/VSS. COMFORT MEASURES PROVIDED. CALL LIGHT WITHIN REACH. NO NEEDS AT THIS TIME.
--- NOTE | 2021-02-15 16:26 | NUR ---
PT CONTINUES CALMLY SITTING ON GURDULCE, NADN/VSS. NO NEEDS AT THIS TIME. CALL LIGHT WITHIN REACH.
[2021-02-15] MEDS ORDERED: HYDROcodone/APAP 5/325 TABLET PO ONE (17:30)
[2021-02-15] MEDS ORDERED: HYDROcodone/APAP 5/325 TABLET ONE (17:45)
[2021-02-15 17:50] VITALS: BP 103/60
--- NOTE | 2021-02-15 17:51 | NUR ---
Patient given discharge instructions and they have confirmed that they understand the instructions. Patient ambulatory with steady gait.
--- NOTE | 2021-02-15 17:57 | NUR ---
PT STATES TAKES NORCO AT HOME WITHOUT ANY PROBLEMS. OK TO DC HOME AT THIS TIME
== END 2021-02-15 17:57 | disposition home or self-care (01) ==
LOC: ED 15:48
DX: S70.12XA Contusion of left thigh, initial encounter (principal); S40.022A Contusion of left upper arm, initial encounter; S40.021A Contusion of right upper arm, initial encounter; S80.11XA Contusion of right lower leg, initial encounter; M19.90 Unspecified osteoarthritis, unspecified site; I10 Essential (primary) hypertension; I25.2 Old myocardial infarction; E78.5 Hyperlipidemia, unspecified; Z86.718 Personal history of other venous thrombosis and embolism; X58.XXXA Exposure to other specified factors, initial encounter; Y93.89 Activity, other specified; Y92.89 Other specified places as the place of occurrence of the external cause; Y99.8 Other external cause status
CPT/HCPCS: 36415; 80048; 80076; 82040; 85025; 85610; 85651; 85730; 99283

== ENCOUNTER 2021-02-22 20:18 | Emergency (ER) | payer MEDICARE, MEDICAID ==
[~2021-02-22] VITALS: Ht 175.3 cm; Wt 70.0 kg
--- NOTE | 2021-02-22 20:36 | NUR ---
PT BIBA FOR S/I. PER EMS, PT CALLED S/I HOTLINE, STATING HE WAS GOING TO SHOOT HIMSELF. PT AMBULATORY TO ROOM. PT HAS ODOR OF ETOH, STATES HE DRANK 1 PINT TODAY (NORMAL FOR HIM X "50YRS"). WHEN QUESTIONED ABOUT HIS PHONE CALL HE REMARKED.."IS THAT WHAT I TOLD THEM?". THEN STATED "I JUST WANT TO TALK TO SOMEONE, I DONT WANT TO , I WANT TO SEE MY GRANDBABIES GROW UP". PT STATES HE IS IN GENERALIZED BONE PAIN X "2WEEKS", NO PAIN MEDS PER PT. PT IS COVERED IN BRUISES, STATES MOST OF FROM LESIONS THAT HE TAKES PREDNISONE FOR. PT CHANGED INTO GOWN, 1 BAG PLACED IN LOCKER. SITTER OUTSIDE OF ROOM. PHLEB AT BS.
--- NOTE | 2021-02-22 20:49 | NUR ---
U/S AT BS. PT UNABLE TO PROVIDE URINE SAMPLE AT THIS TIME. URINAL AT BS.
[2021-02-22 20:50] LABS: BASOPHILS % (AUTO) 1 % (0-1); EOSINOPHILS % (AUTO) 2 % (1-7); LYMPHOCYTES % (AUTO) 39 % (22-44); MEAN CORPUSCULAR HEMOGLOBIN 32.8 pg (27.5-34.5); MEAN CORPUSCULAR HGB CONC 33.3 g/dL (33.2-36.2); MEAN PLATELET VOLUME 7.3 fL (7.4-10.4); MONOCYTES % (AUTO) 9 % (2-9); NEUTROPHILS % (AUTO) 50 % (42-75); PLATELET COUNT 394 x10^3/uL (130-400); RED BLOOD COUNT 3.81 x10^6/uL (4.38-5.82); RED CELL DISTRIBUTION WIDTH 14.4 % (9.4-14.8)
[2021-02-22 20:58] LABS: ALBUMIN 3.7 g/dL (3.4-5.0); ANION GAP 12 mmol/L (5-15); CALCIUM 8.5 mg/dL (8.5-10.1); CHLORIDE 106 mmol/L (98-107); SALICYLATE LEVEL 4.6 mg/dL (2.8-20.0)
[2021-02-22 21:01] LABS: ALANINE AMINOTRANSFERASE 30 U/L (12-78); ALKALINE PHOSPHATASE 84 U/L (45-117); BILIRUBIN,TOTAL 1.1 mg/dL (0.2-1.0); CREATININE 0.53 mg/dL (0.7-1.3); TOTAL PROTEIN 7.6 g/dL (6.4-8.2)
[2021-02-22 21:15] LABS: MD SCAN
--- NOTE | 2021-02-22 21:34 | NUR ---
UDS COLLECTED & SENT.
[2021-02-22 21:55] LABS: AMPHETAMINE SCREEN, URINE Negative (Negative); BARBITURATE SCREEN, URINE Negative (Negative); BENZODIAZEPINE SCREEN, URINE Negative (Negative); CANNABINOID SCREEN, URINE Positive (Negative); COCAINE SCREEN, URINE Negative (Negative); METHADONE SCREEN, URINE Negative (Negative); OPIATE SCREEN, URINE Negative (Negative)
--- NOTE | 2021-02-22 23:20 | NUR ---
SPOKE C TELE DOC, UPDATED ON PTS CONDITION, AWARE THAT PT IS INTOXICATED. MD REQUESTING ER CALL BACK FOR EVAL WHEN PT IS SOBER.
[2021-02-23 02:16] VITALS: BP 133/71
[2021-02-23] MEDS ORDERED: ONDANSETRON ODT 4 MG ONE (03:26)
[2021-02-23] MEDS ORDERED: ONDANSETRON 2MG/ML, 2ML IVPush ONE (03:30)
--- NOTE | 2021-02-23 03:41 | NUR ---
PT N/V. GIVEN ZOFRAN ODT PER VO OF EDGER HAND. WILL CTM.
== END 2021-02-23 04:11 | disposition home or self-care (01) ==
LOC: ED 23:01
DX: R45.851 Suicidal ideations (principal); F41.9 Anxiety disorder, unspecified; R45.1 Restlessness and agitation; E87.6 Hypokalemia; E78.5 Hyperlipidemia, unspecified; I25.2 Old myocardial infarction; F17.210 Nicotine dependence, cigarettes, uncomplicated; Z72.9 Problem related to lifestyle, unspecified; Z86.718 Personal history of other venous thrombosis and embolism
CPT/HCPCS: 36415; 80053; 80299; 80307; 80320; 80329; 85025; 93971; 96374; 99284; 99406; J2405; G0480

== ENCOUNTER 2021-03-05 20:13 | Emergency (ER) | payer MEDICARE, MEDICAID ==
[~2021-03-05] VITALS: Ht 175.3 cm; Wt 65.0 kg
[~2021-03-05 20:13] MED LIST changes: -LISI2.5T PO; +LISI2.5T12 PO; -OMEP40CA42 PO; +OMEP40CA8 PO; -VANC1VIA3 PO; +VANC1VIA36 PO
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
--- NOTE | 2021-03-05 20:35 | NUR ---
Report to CRISPIN Gonzalez. Patient care transferred.
[2021-03-05] MEDS ORDERED: DIPH,PERTUSS(ACELL),TET VAC/PF 0.5 ML IM-VACC ONE ×2 (21:00→23:32)
--- NOTE | 2021-03-05 22:22 | NUR ---
PT REQUESTING SOMETHING TO DRINK, PENDING CT RESULTS. PTS FOREHEAD CLEANED, SMALL OOZING FROM FOREHEAD LAC, CONTROLLED WITH DRESSING.
[2021-03-05] MEDS ORDERED: NEOSPORIN OINT. PKT 1 PACKET ONE (23:02)
[2021-03-05 23:37] VITALS: BP 109/70
--- NOTE | 2021-03-05 23:46 | NUR ---
PT WHEELED TO DC DESK, PT AMBULATORY WITH STEADY GAIT AND PERSONAL CANE. PT GIVEN TAXI VOUCHER.
== END 2021-03-06 00:04 | disposition home or self-care (01) ==
LOC: ED 20:41
DX: S06.0X0A Concussion without loss of consciousness, initial encounter (principal); S01.112A Laceration without foreign body of left eyelid and periocular area, initial encounter; F17.210 Nicotine dependence, cigarettes, uncomplicated; F10.220 Alcohol dependence with intoxication, uncomplicated; M54.2 Cervicalgia; M19.90 Unspecified osteoarthritis, unspecified site; I25.2 Old myocardial infarction; I10 Essential (primary) hypertension; E78.5 Hyperlipidemia, unspecified; Z98.61 Coronary angioplasty status; Z86.718 Personal history of other venous thrombosis and embolism; Y90.0 Blood alcohol level of less than 20 mg/100 ml; W01.0XXA Fall on same level from slipping, tripping and stumbling without subsequent striking against object, initial encounter
CPT/HCPCS: 70450; 70486; 72125; 90471; 90715; 99285; 99406

== ENCOUNTER 2021-05-08 12:41 | Outpatient (CLI) | payer MEDICARE, MEDICAID ==
[~2021-05-08 12:41] MED LIST changes: +LISI2.5T PO; -LISI2.5T12 PO
== END 2021-05-08 23:59 | disposition home or self-care (01) ==
LOC: WOUND 12:41
PROVIDERS: ATTEND Internal Medicine
DX: S81.801A Unspecified open wound, right lower leg, initial encounter (principal); M30.0 Polyarteritis nodosa; E78.5 Hyperlipidemia, unspecified; G62.9 Polyneuropathy, unspecified; I25.10 Atherosclerotic heart disease of native coronary artery without angina pectoris; J44.9 Chronic obstructive pulmonary disease, unspecified; F41.1 Generalized anxiety disorder; I11.0 Hypertensive heart disease with heart failure; I50.9 Heart failure, unspecified; I25.2 Old myocardial infarction; K76.6 Portal hypertension; K74.60 Unspecified cirrhosis of liver; M19.90 Unspecified osteoarthritis, unspecified site; F32.9 Major depressive disorder, single episode, unspecified; F12.10 Cannabis abuse, uncomplicated; F17.210 Nicotine dependence, cigarettes, uncomplicated; F10.231 Alcohol dependence with withdrawal delirium; Z20.822 Contact with and (suspected) exposure to COVID-19; Z79.01 Long term (current) use of anticoagulants; I73.9 Peripheral vascular disease, unspecified; Z95.5 Presence of coronary angioplasty implant and graft; Z86.19 Personal history of other infectious and parasitic diseases; Z86.73 Personal history of transient ischemic attack (TIA), and cerebral infarction without residual deficits; Z86.718 Personal history of other venous thrombosis and embolism; X58.XXXA Exposure to other specified factors, initial encounter; Y93.89 Activity, other specified; Y92.89 Other specified places as the place of occurrence of the external cause; Y99.8 Other external cause status
CPT/HCPCS: G0463